=== PATIENT | male | born 1950 | race Caucasian/White ===

== ENCOUNTER 2019-04-22 21:55 | Emergency (ER) | payer MEDICARE ==
--- NOTE | 2019-04-22 22:26 | ED ---
Complex/Multi-Sys Presentation - HPI Summary HPI Summary: Patient complains of sudden onset of posterior neck pain starting at 8 PM which lasted for a couple minutes, then followed by episode of lightheadedness, diaphoresis times "a few minutes. Patient urinated during episode of lightheadedness. All symptoms currently resolved. Patient denies fever, cough , sore throat, CP, SOB, N/V/D, abdominal pain, change in urine, change in BM. No prior cardiac history. History of hypertension, not taking medication. Patient states he had 3 cups of coffee this morning and 3 beers in the afternoon was no intake of water. Patient states he never drinks water. Denies any recent CP or SOB with exertion. Denies prior history of syncope. - History Of Current Complaint Chief Complaint: EDGeneral Time Seen by Provider: 04/22/19 22:22 Hx Obtained From: Patient Onset/Duration: Sudden Onset, Lasting Minutes Timing: Minutes Severity Currently: None Severity Initially: Moderate Associated Signs And Symptoms: Positive: Diaphoresis - Allergies/Home Medications Allergies/Adverse Reactions: Allergies Allergy/AdvReac Type Severity Reaction Status Date / Time No Known Allergies Allergy Verified 04/22/19 22:00 PMH/Surg Hx/FS Hx/Imm Hx Endocrine/Hematology History: Denies: Hx Anticoagulant Therapy Cardiovascular History: Denies: Hx Pacemaker/ICD History: Denies: Hx Dialysis Sensory History: Denies: Hx Eye Prosthesis Opthamlomology History: Denies: Hx Legally Blind EENT History: Denies: Hx Deafness Infectious Disease History: No Infectious Disease History: Denies: Traveled Outside the [place] in Last 30 Days - Family History Known Family History: Positive: Non-Contributory - Social History Alcohol Use: Daily Alcohol Amount: 1-3 beers daily Substance Use Type: Reports: None Smoking Status (MU): Light Every Day Tobacco Smoker Review of Systems Positive: Skin Diaphoresis Eyes: Negative ENT: Negative Cardiovascular: Negative Respiratory: Negative Gastrointestinal: Negative Genitourinary: Negative Musculoskeletal: Negative Skin: Negative Neurological/Mental Status: Negative Psychological: Normal All Other Systems Reviewed And Are Negative: Yes Physical Exam - Summary Physical Exam Summary: Full range of motion of neck and jaw. No pain with palpation of neck or back. Neuro exam normal. No lightheadedness with change in position or elevation to standing position. Abdomen soft nontender. No peripheral edema. Lung sounds clear to auscultation bilaterally. Regular rate and rhythm. Triage Information Reviewed: Yes Vital Signs On Initial Exam: Initial Vitals Temp Pulse Resp BP Pulse Ox 97.2 F 92 16 158/82 95 04/22/19 21:56 04/22/19 21:56 04/22/19 21:56 04/22/19 21:56 04/22/19 21:56 Vital Signs Reviewed: Yes Appearance: Positive: Well-Appearing Skin: Positive: Warm Head/Face: Positive: Normal Head/Face Inspection Eyes: Positive: Normal Neck: Positive: Supple Respiratory/Lung Sounds: Positive: Clear to Auscultation Cardiovascular: Positive: Normal Abdomen Description: Positive: Nontender Musculoskeletal: Positive: Normal Neurological: Positive: Normal Psychiatric: Positive: Normal AVPU Assessment: Alert - [place] Coma Scale Best Eye Response: 4 - Spontaneous Best Motor Response: 6 - Obeys Commands Best Verbal Response: 5 - Oriented Coma Scale Total: 15 Procedures - Sedation Patient Received Moderate/Deep Sedation with Procedure: No Diagnostics - Vital Signs Vital Signs Temp Pulse Resp BP Pulse Ox 04/22/19 21:56 97.2 F 92 16 158/82 95 - Laboratory Result Diagrams: 04/22/19 23:03 04/22/19 23:03 Lab Statement: Any lab studies that have been ordered have been reviewed, and results considered in the medical decision making process. Complex Multi-Symp Course/Dx Course Of Treatment: Patient complains of sudden onset of posterior neck pain starting at 8 PM which lasted for a couple minutes, then followed by episode of lightheadedness, diaphoresis times "a few minutes. Patient urinated during episode of lightheadedness. All symptoms currently resolved. Patient denies fever, cough, sore throat, CP, SOB, N/V/D, abdominal pain, change in urine, change in BM. No prior cardiac history. History of hypertension, not taking medication. Patient states he had 3 cups of coffee this morning and 3 beers in the afternoon was no intake of water. Patient states he never drinks water. Denies any recent CP or SOB with exertion. Denies prior history of syncope. Vital signs within normal limits. WBC 14.2. Labs otherwise unremarkable. Urine negative. Chest x-ray negative. EKG sinus rhythm, heart rate of 87, normal P axis. No prior EKG on file. Patient patient asymptomatic when ambulated around ED. - Diagnoses Provider Diagnoses: Lightheaded Discharge ED - Sign-Out/Discharge Documenting (check all that apply): Patient Departure - Discharge Plan Condition: Stable Disposition: HOME Patient Education Materials: Zackary (ED) Referrals: Haris PALMER,Brett Underwood [Primary Care Provider] - Additional Instructions: Drink plenty of water to maintain hydration. Follow-up with primary care. Return immediately for any new or worsening symptoms. - Billing Disposition and Condition Condition: STABLE Disposition: Home
[2019-04-22 23:02] LABS: Influenza A Molecular Negative (Negative); Influenza B Molecular Negative (Negative)
[2019-04-22 23:15] LABS: ABS Basophils 0.1 10^3/ul (0-0.2); ABS Lymphocytes 1.4 10^3/ul (1.0-4.8); ABS Neutrophils 11.7 10^3/ul (1.5-7.7); Eosinophil % 0.3 %; Hematocrit 46 % (42-52); Hemoglobin 15.8 g/dL (14.0-18.0); Lymphocyte % 9.7 %; Mean Corpuscular HGB Conc 35 g/dL (31-36); Mean Corpuscular Hemoglobin 30 pg (27-31); Mean Corpuscular Volume 87 fL (80-94); Mean Platelet Volume 7.3 fL (7.4-10.4); Nucleated Red Blood Cells % 0.1; Platelet Count 217 10^3/uL (150-450); Red Blood Count 5.25 10^6 /uL (4.18-5.48); Red Cell Distribution Width 14 % (10-15); White Blood Count 14.2 10^3/uL (3.5-10.8)
[2019-04-22 23:22] LABS: INR 1.09 (0.82-1.09)
[2019-04-22 23:33] LABS: Albumin 3.9 g/dL (3.2-5.2); Albumin/Globulin Ratio 1.6 (1-3); C Reactive Protein 2.03 mg/L (<8.01); Calcium 9.1 mg/dL (8.6-10.3); EGFR African American 89.4 (>60); EGFR Non-African American 73.9 (>60); Globulin 2.5 g/dL (2-4); Potassium 3.6 mmol/L (3.5-5.0); Total Bilirubin 0.5 mg/dL (0.2-1.0); Total Protein 6.4 g/dL (6.4-8.9)
[2019-04-22 23:35] LABS: Troponin I 0.01 ng/mL (<0.03)
[2019-04-22 23:57] LABS: TSH (Thyroid Stimulating Horm) 2.99 mcIU/mL (0.34-5.60)
[2019-04-23 00:57] LABS: Urine Appearance Cloudy; Urine Bilirubin Negative (Negative); Urine Blood Negative (Negative); Urine Color Yellow; Urine Glucose Negative (Negative); Urine Ketones Negative (Negative); Urine Nitrite Negative (Negative); Urine Protein Negative (Negative); Urine Specific Gravity 1.015 (1.010-1.030); Urine Urobilinogen Negative (Negative)
[2019-04-23 01:18] VITALS: BP 156/90
== END 2019-04-23 01:18 | disposition home or self-care (01) ==
LOC: ED 21:55
DX: R42 Dizziness and giddiness (principal); M54.2 Cervicalgia; R61 Generalized hyperhidrosis; F17.200 Nicotine dependence, unspecified, uncomplicated
CPT/HCPCS: 36415; 71045; 80053; 81003; 83690; 83880; 84443; 84484; 85025; 85610; 86140; 93005; 99283

== ENCOUNTER 2020-07-05 05:41 | Observation (INO) ==
[2020-07-05] MEDS ORDERED: Buffered Lidocaine 1% SYRIN 1 ml INTRADERM ONE (06:00)
[2020-07-05] MEDS ORDERED: Lactated Ringers 1000 ml BAG 1,000 ML IV SCH (06:00)
[2020-07-05] MEDS ORDERED: Famotidine IV 10 MG/ML 2 ml VIAL (20 mg) IV ONE (06:00)
[2020-07-05] MEDS ORDERED: ceFAZolin 2 GM PREMIX 2 GM/50 ML BAG ONE (06:11)
[2020-07-05] MEDS ORDERED: Famotidine IV 10 MG/ML 2 ml VIAL (20 mg) ONE (06:11)
[2020-07-05] MEDS ORDERED: Dexamethasone IV 4 MG/ML VIAL 1 ml VIAL ONE (06:56)
[2020-07-05] MEDS ORDERED: ROPIVACAINE 5 MG/ML 30 ML BTL (0.5%) ONE (06:56)
[2020-07-05] MEDS ORDERED: Ondansetron 4 mg VIAL 2 MG/ML 2 ml VIAL ONE (06:56)
[2020-07-05] MEDS ORDERED: Lidocaine 2% PF 5 ML VIAL ONE ×2 (06:56→09:17)
[2020-07-05] MEDS ORDERED: Propofol 10 MG/ML 20 ML BTL ONE ×3 (06:56→09:17)
[2020-07-05] MEDS ORDERED: fentaNYL 100 mcg/2 ml 50 MCG/ML VIAL ONE (06:56)
[2020-07-05] MEDS ORDERED: Midazolam 10 mg/10 ml VIAL 1 mg/ml 10 ml VIAL (10 mg) ONE (06:57)
[2020-07-05] MEDS ORDERED: Ketamine HCL 50 mg/ml 10 ml VIAL (500 MG) ONE (06:57)
[2020-07-05] MEDS ORDERED: Vancomycin 1,000 MG VIAL ONE (07:12)
[2020-07-05] MEDS ORDERED: Bupivacaine 0.5% SDV PF 30ML VIAL ONE (08:09)
[2020-07-05] MEDS ORDERED: Phenylephrine IV 10 MG/ML 1 ml VIAL ONE (08:34)
[2020-07-05] MEDS ORDERED: Ondansetron 4 mg VIAL 2 MG/ML 2 ml VIAL IV PRN ×2 (08:53→10:42)
[2020-07-05] MEDS ORDERED: HYDROmorphone 1 MG/1 ML SYRINGE IV PRN (08:53)
[2020-07-05] MEDS ORDERED: Naloxone 0.4 mg VIAL 0.4 mg/ml 1 ml VIAL IV PRN (08:53)
[2020-07-05] MEDS ORDERED: fentaNYL 100 mcg/2 ml 50 MCG/ML VIAL IV PRN (08:53)
[2020-07-05] MEDS ORDERED: diPHENhydraMINE 25 mg TAB PO PRN (10:42)
[2020-07-05] MEDS ORDERED: Magnesium Hydroxide LIQ 30 ML UDC PO PRN (10:42)
[2020-07-05] MEDS ORDERED: Lactulose 30 ml UDC PO PRN (10:42)
[2020-07-05] MEDS ORDERED: diPHENhydraMINE IV 50 MG/ML 1 ml VIAL (BENADRYL) IV PRN (10:42)
[2020-07-05] MEDS ORDERED: Ondansetron ODT 4 mg TAB 4 MG TAB PO PRN (10:42)
[2020-07-05] MEDS ORDERED: Morphine 2 MG/ML SYRINGE IV PRN (10:42)
[2020-07-05] MEDS ORDERED: D5W 1/2 NS 1000 ml BAG 1,000 ML IV SCH (11:00)
[2020-07-05 14:44] VITALS: BP 146/71
[2020-07-05] MEDS ORDERED: ceFAZolin 1 GM ADVAN 1 GM in NS 0.9% 50 ML 50 ML IVPB SCH (16:00)
[2020-07-05] MEDS ORDERED: Magnesium Hydroxide LIQ 30 ML UDC PO SCH (21:00)
[2020-07-06] MEDS ORDERED: Vitamin THERAPEUTIC TAB PO SCH (09:00)
[2020-07-06] MEDS ORDERED: Cholecalciferol (VIT D3) 1,000 unit TAB PO SCH (09:00)
== END 2020-07-05 18:05 | disposition home or self-care (01) ==
LOC: OR 05:41 → SSU 05:41
PROVIDERS: ADMIT Orthopaedic Surgery; ATTEND Orthopaedic Surgery